=== PATIENT | female | born 1995 | race Native Hawaiian/Other Pacific Islander ===

== ENCOUNTER 2019-08-06 21:59 | Emergency (ER) | payer OTHER ==
[~2019-08-06] VITALS: Ht 167.6 cm; Wt 99.8 kg
[2019-08-06] MEDS ORDERED: PROAIR HFA INH (22:28)
[2019-08-06 23:14] VITALS: BP 120/70; TEMP 98.6
== END 2019-08-06 23:14 | disposition home or self-care (01) ==
LOC: ED 21:59
DX: S20.162A Insect bite (nonvenomous) of breast, left breast, initial encounter (principal); W57.XXXA Bitten or stung by nonvenomous insect and other nonvenomous arthropods, initial encounter; Y92.89 Other specified places as the place of occurrence of the external cause
CPT/HCPCS: 99281; J2405